=== PATIENT | female | born 1990 | race Caucasian/White ===

== ENCOUNTER 2022-12-13 10:31 | Outpatient (CLI) | payer OTHER, SELFPAY ==
[2022-12-13 14:36] LABS: Cholesterol* 209 mg/dL (90-199)
[2022-12-13 14:37] LABS: Glucose* 97 mg/dL (60-115); HDL Cholesterol* 54 mg/dL (>=50); LDL Cholesterol Calculated 138 mg/dL (<100); Triglycerides* 85 mg/dL (40-149)
== END 2022-12-13 10:32 | disposition home or self-care (01) ==
PROVIDERS: Visit Provider Physician Assistant
DX: Z01.419 Encounter for gynecological examination (general) (routine) without abnormal findings (principal); E78.5 Hyperlipidemia, unspecified; Z13.1 Encounter for screening for diabetes mellitus
CPT/HCPCS: 80061; 82947

== ENCOUNTER 2024-01-10 10:40 | Outpatient (CLI) | payer OTHER, SELFPAY | END 2024-01-10 10:41 | disposition home or self-care (01) | PROVIDERS: Visit Provider Physician Assistant | DX: E78.5 Hyperlipidemia, unspecified (principal); Z13.1 Encounter for screening for diabetes mellitus | CPT/HCPCS: 80061; 82947 ==